=== PATIENT | female | born 1960 | race African-American/Black ===

== ENCOUNTER → 2021-10-01 | Day surgery (SDC) | payer OTHER ==
[~2021-10-01] VITALS: Ht 162.6 cm; Wt 77.1 kg
[~2021-10-01] MED LIST: ASCORBIC ACID500 MG PO; ASPIRIN EC81 MG PO; ATORVASTATIN CA10 MG PO; HCTZ25 MG PO; LOSARTAN POTASS50 MG PO; VITAMIN D310 MC3 PO
[2021-10-01 08:00] LABS: HCT 41.6 % (37.0-47.0); HGB 14.2 g/dl (12.5-16.0); MCH 25.1 pg (25.0-31.0); MCHC 34.1 g/dL (32.0-36.0); MCV 73.6 fL (78.0-100.0); MPV 10.3 fL (6.0-9.5); RBC 5.65 M/uL (4.20-5.40); RDW 13.2 % (11.5-14.0)
[2021-10-01 08:27] LABS: BILIRUBIN - TOTAL 0.5 mg/dL (0.2-1.0); BUN/CREAT RATIO (CALC) 24.6 RATIO; CREATININE 0.57 mg/dL (0.51-0.95); POTASSIUM 3.2 mmol/L (3.5-5.1)
== END | disposition home or self-care (01) ==
LOC: FAS 07:22
PROVIDERS: Surgery
DX: Z12.11 Encounter for screening for malignant neoplasm of colon (principal); I10 Essential (primary) hypertension; E78.00 Pure hypercholesterolemia, unspecified; E78.5 Hyperlipidemia, unspecified; Z79.82 Long term (current) use of aspirin; Z79.899 Other long term (current) drug therapy
CPT/HCPCS: 36415; 80053; J2250; J2704; J7120